=== PATIENT | male | born 1990 | race Caucasian/White ===

== ENCOUNTER → 2020-11-29 08:31 | Outpatient (CLI) | payer OTHER, SELFPAY ==
--- NOTE | 2020-11-29 | DI.MRI.S_ITS ---
PROCEDURE: MR KNEE LT WO CON INDICATIONS: Pain in left knee TECHNIQUE: Noncontrast sagittal PD fast spin echo and T2 fast spin echo with fat saturation, sagittal 3-D FLASH with fat saturation; coronal T1 spin echo and PD fast spin echo with fat saturation, and axial PD fast spin echo with fat saturation through the knee. COMPARISON: None. FINDINGS: Image quality: Excellent. Menisci: Radial tearing of the posterior horn medial meniscus at the meniscal root ligament insertion site is present. Medial extrusion of the medial meniscus is present. Linear horizontally oriented high signal intensity traverses the medial meniscal body and posterior horn, demonstrating inferior articular surface extension, indicating horizontal tearing. There is radial tearing of the posterior horn lateral meniscus at the meniscal root ligament insertion site. Lateral extrusion of the lateral meniscus is present. Detachment of the anterior horn lateral meniscus is present. There is amorphous high signal intensity within the anterior horn lateral meniscus, demonstrating superior articular surface extension, indicating degenerative tearing. Cruciate ligaments: There is moderate posterior bowing of the anterior cruciate ligament which demonstrates moderate heterogeneity superiorly, indicating partial thickness tearing. Posterior cruciate ligament is intact. Medial structures: Moderate T2 signal elevation surrounds the medial collateral ligament. There is full-thickness tearing of the anterior fibers of the medial collateral ligament.. Visualized portions of the pes anserinus tendons appear normal. Moderate medial bursal fluid. Lateral structures: The lateral collateral ligament, long and short heads of the biceps femoris tendon appear intact. The popliteus tendon appears normal. Iliotibial band appears normal. Anterior structures: The quadriceps and patellar tendons appear intact. Patellar alignment is normal. No femoral trochlear dysplasia or ventral trochlear prominence. No edema in the infrapatellar fat pad. There is moderate ill-defined T2 signal elevation within the subcutaneous soft tissues of the anterior, anteromedial, and anterolateral aspect of the knee. Bones and cartilage: Ill-defined linear low T1/T2 signal intensity traverses the posterior weight-bearing aspect of the lateral tibial plateau with moderate surrounding T2 signal elevation, indicating a nondisplaced fracture with surrounding contusion. Mild ill-defined T2 signal elevation within the posterior aspect of the fibular head is present, consistent with contusion. There is moderate cortical irregularity involving the mid/anterior weight-bearing aspect of the lateral femoral condyle, with underlying moderate ill-defined T2 signal elevation, indicating contusion with mildly displaced overlying cortical fracture. There is mild ill-defined T2 signal elevation within the anterior and posterior weight-bearing aspects of the medial tibial plateau as well as the mid/posterior weight-bearing aspects of the medial femoral condyle, consistent with contusion. Mild ill-defined T2 signal elevation within the inferior patella is present, consistent with contusion. There is mild articular cartilage loss diffusely overlying the weight-bearing aspects of the medial and lateral compartment. There is a superimposed focal region of high-grade articular cartilage loss overlying the mid/anterior weight-bearing aspect of the lateral femoral condyle measuring roughly 10 mm anteroposterior. Joint space: There is a moderate knee joint effusion and a small Pandey's cyst. Several intra-articular loose bodies are present measuring less than 5 mm diameter. Normal appearing synovial plicae are incidentally noted. IMPRESSION: 1. Cortical irregularity overlying the lateral femoral condyle, consistent with a mildly displaced fracture, with underlying contusion. There is overlying cartilaginous injury. Nondisplaced fracture of the lateral tibial plateau posteriorly with surrounding contusion. 2. Contusions within the inferior patella, medial femoral condyle and medial tibial plateau, as well as the fibular head. 3. High-grade partial-thickness anterior cruciate ligament tear. 4. Tearing of the anterior fibers of the medial collateral ligament. 5. Medial and lateral meniscal tearing. 6. Knee joint effusion and Pandey's cyst. Intra-articular loose bodies. 7. Medial bursitis. Dictated by: Kendy Jerry M.D. on 11/29/2020 at 10:24 Approved by: Kendy Jerry M.D. on 11/29/2020 at 10:30
== END ==
PROVIDERS: Referring Provider Student in an Organized Health Care Education/Training Program; Visit Provider Student in an Organized Health Care Education/Training Program
DX: S82.145A Nondisplaced bicondylar fracture of left tibia, initial encounter for closed fracture (principal); S83.512A Sprain of anterior cruciate ligament of left knee, initial encounter; S83.412A Sprain of medial collateral ligament of left knee, initial encounter; S83.282A Other tear of lateral meniscus, current injury, left knee, initial encounter; S83.242A Other tear of medial meniscus, current injury, left knee, initial encounter; M25.462 Effusion, left knee; M71.22 Synovial cyst of popliteal space [Baker], left knee; M71.562 Other bursitis, not elsewhere classified, left knee
CPT/HCPCS: 73721